=== PATIENT | female | born 1945 ===

== ENCOUNTER 2017-12-30 05:45 | Day surgery (SDC) | payer OTHER ==
[~2017-12-30 05:45] MED LIST: ASA81 MG PO; COZAAR50 MG PO; GABAPENTIN600 MG PO; LEVO-T25 MCG PO; METFORMIN HCL500 MG PO; NORVASC2.5 MG PO; SIMVASTATIN40 MG PO; TOPROL XL50 M1 PO; ZANTAC150 MG PO
== END 2017-12-30 10:45 | disposition home or self-care (01) ==
LOC: CIR.AMB 05:45
DX: C50.412 Malignant neoplasm of upper-outer quadrant of left female breast (principal)

== ENCOUNTER 2018-08-10 08:48 | Outpatient (CLI) | payer OTHER | END 2018-08-10 08:55 | disposition home or self-care (01) | LOC: MAMO-SONO 08:48 | DX: Z12.31 Encounter for screening mammogram for malignant neoplasm of breast (principal); Z87.898 Personal history of other specified conditions; N64.89 Other specified disorders of breast; C50.412 Malignant neoplasm of upper-outer quadrant of left female breast; C50.612 Malignant neoplasm of axillary tail of left female breast; D51.1 Vitamin B12 deficiency anemia due to selective vitamin B12 malabsorption with proteinuria; Z92.21 Personal history of antineoplastic chemotherapy; E08.9 Diabetes mellitus due to underlying condition without complications; I10 Essential (primary) hypertension; E78.49 Other hyperlipidemia; E03.8 Other specified hypothyroidism; K90.89 Other intestinal malabsorption ==

== ENCOUNTER 2019-08-16 09:27 | Outpatient (CLI) | payer OTHER | END 2019-08-16 09:36 | disposition home or self-care (01) | LOC: MAMO-SONO 09:27 | DX: Z12.31 Encounter for screening mammogram for malignant neoplasm of breast (principal); Z87.898 Personal history of other specified conditions; C50.412 Malignant neoplasm of upper-outer quadrant of left female breast; C50.612 Malignant neoplasm of axillary tail of left female breast; D51.1 Vitamin B12 deficiency anemia due to selective vitamin B12 malabsorption with proteinuria; D51.3 Other dietary vitamin B12 deficiency anemia; Z92.21 Personal history of antineoplastic chemotherapy; E08.9 Diabetes mellitus due to underlying condition without complications; I10 Essential (primary) hypertension; E78.49 Other hyperlipidemia; E03.8 Other specified hypothyroidism; K90.89 Other intestinal malabsorption ==

== ENCOUNTER 2020-09-04 07:25 | Outpatient (CLI) | payer OTHER | END 2020-09-04 07:34 | disposition home or self-care (01) | LOC: MAMO-SONO 07:25 | PROVIDERS: ATTEND Internal Medicine Hematology & Oncology | DX: R92.0 Mammographic microcalcification found on diagnostic imaging of breast (principal); N64.59 Other signs and symptoms in breast; D51.1 Vitamin B12 deficiency anemia due to selective vitamin B12 malabsorption with proteinuria; Z92.21 Personal history of antineoplastic chemotherapy; D51.3 Other dietary vitamin B12 deficiency anemia; C50.612 Malignant neoplasm of axillary tail of left female breast; C50.412 Malignant neoplasm of upper-outer quadrant of left female breast; E08.9 Diabetes mellitus due to underlying condition without complications; I10 Essential (primary) hypertension; E78.49 Other hyperlipidemia; E03.8 Other specified hypothyroidism; K90.89 Other intestinal malabsorption ==

== ENCOUNTER 2021-09-09 07:48 | Outpatient (CLI) | payer OTHER | END 2021-09-09 07:54 | disposition home or self-care (01) | LOC: MAMO-SONO 07:48 | PROVIDERS: ATTEND Specialist | DX: N64.89 Other specified disorders of breast (principal); Z85.3 Personal history of malignant neoplasm of breast ==

== ENCOUNTER → 2022-09-10 | Outpatient (CLI) | payer OTHER | END | disposition home or self-care (01) | LOC: MAMO-SONO 08:17 | PROVIDERS: ATTEND Internal Medicine Hematology & Oncology | DX: Z12.31 Encounter for screening mammogram for malignant neoplasm of breast (principal); N63.0 Unspecified lump in unspecified breast; C50.412 Malignant neoplasm of upper-outer quadrant of left female breast; C50.612 Malignant neoplasm of axillary tail of left female breast ==

== ENCOUNTER 2023-09-15 08:35 | Outpatient (CLI) | payer OTHER | END 2023-09-15 08:41 | disposition home or self-care (01) | LOC: MAMO-SONO 08:35 | PROVIDERS: ATTEND Internal Medicine Hematology & Oncology | DX: Z12.31 Encounter for screening mammogram for malignant neoplasm of breast (principal); N63.0 Unspecified lump in unspecified breast; N64.4 Mastodynia ==

== ENCOUNTER 2024-03-28 13:28 | Outpatient (CLI) | payer OTHER ==
[2024-03-28 14:16] LABS: CREATININE SERUM 0.8 mg/dL (0.55-1.02)
== END 2024-03-28 13:29 | disposition home or self-care (01) ==
LOC: LAB 13:28
PROVIDERS: ATTEND Radiology Diagnostic Radiology
DX: C50.412 Malignant neoplasm of upper-outer quadrant of left female breast (principal); C50.612 Malignant neoplasm of axillary tail of left female breast

== ENCOUNTER 2024-04-05 07:37 | Outpatient (CLI) | payer OTHER | END 2024-04-05 07:45 | disposition home or self-care (01) | LOC: TOM 07:37 | PROVIDERS: ATTEND Internal Medicine Hematology & Oncology | DX: C50.412 Malignant neoplasm of upper-outer quadrant of left female breast (principal); C50.612 Malignant neoplasm of axillary tail of left female breast; D51.1 Vitamin B12 deficiency anemia due to selective vitamin B12 malabsorption with proteinuria; D51.3 Other dietary vitamin B12 deficiency anemia; Z92.21 Personal history of antineoplastic chemotherapy; E08.9 Diabetes mellitus due to underlying condition without complications; I10 Essential (primary) hypertension; E78.5 Hyperlipidemia, unspecified; E03.8 Other specified hypothyroidism; K90.89 Other intestinal malabsorption; M62.838 Other muscle spasm | CPT/HCPCS: 71270; Q9965 ==

== ENCOUNTER 2024-09-18 08:50 | Outpatient (CLI) | payer OTHER | END 2024-09-18 09:05 | disposition home or self-care (01) | LOC: MAMO-SONO 08:50 | PROVIDERS: ATTEND Specialist | DX: Z85.3 Personal history of malignant neoplasm of breast (principal) ==

== ENCOUNTER 2025-09-25 08:58 | Outpatient (CLI) | payer OTHER | END 2025-09-25 09:05 | disposition home or self-care (01) | LOC: MAMO-SONO 08:58 | PROVIDERS: ATTEND Internal Medicine Hematology & Oncology | DX: N63.0 Unspecified lump in unspecified breast (principal); N64.4 Mastodynia; C50.412 Malignant neoplasm of upper-outer quadrant of left female breast; C50.612 Malignant neoplasm of axillary tail of left female breast; Z12.31 Encounter for screening mammogram for malignant neoplasm of breast; D51.1 Vitamin B12 deficiency anemia due to selective vitamin B12 malabsorption with proteinuria; D51.3 Other dietary vitamin B12 deficiency anemia; Z92.21 Personal history of antineoplastic chemotherapy; E08.9 Diabetes mellitus due to underlying condition without complications; I10 Essential (primary) hypertension; E78.5 Hyperlipidemia, unspecified; E03.8 Other specified hypothyroidism; K90.89 Other intestinal malabsorption; M62.838 Other muscle spasm ==